=== PATIENT | female | born 1985 | race American Indian/Alaskan Native ===

== ENCOUNTER 2016-12-21 08:14 | Emergency (ER) | payer OTHER ==
[2016-12-21 08:28] VITALS: BP 129/87
[2016-12-21] MEDS ORDERED: TYLENOL PO ONE (09:41)
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
== END 2016-12-21 11:43 | disposition home or self-care (01) ==
LOC: ED 08:14
DX: S13.4XXA Sprain of ligaments of cervical spine, initial encounter (principal); R51 Headache; J45.909 Unspecified asthma, uncomplicated; V49.49XA Driver injured in collision with other motor vehicles in traffic accident, initial encounter; Y93.89 Activity, other specified; Y99.9 Unspecified external cause status; Y92.410 Unspecified street and highway as the place of occurrence of the external cause
CPT/HCPCS: 70450